=== PATIENT | female | born 1950 | race African-American/Black ===

== ENCOUNTER 2022-05-17 15:19 | Emergency (ER) | payer OTHER, MEDICAID ==
[~2022-05-17] VITALS: Ht 152.4 cm; Wt 79.4 kg
[2022-05-17 15:20] VITALS: BP_SYST 120
== END 2022-05-17 20:04 | disposition left against medical advice (07) ==
LOC: SED 15:19
DX: R10.9 Unspecified abdominal pain (principal); I10 Essential (primary) hypertension; Z53.21 Procedure and treatment not carried out due to patient leaving prior to being seen by health care provider